=== PATIENT | female | born 1970 | race Caucasian/White ===

== ENCOUNTER 2017-04-27 10:13 | Emergency (ER) | payer OTHER ==
[2017-04-27] MEDS ORDERED: LORAZEPAM 2 MG/ML SOL IV ONE ×2 (10:22→10:53)
[2017-04-27] MEDS ORDERED: PROCHLORPERAZINE EDISYLATE 5 MG/ML SOL IV ONE (10:22)
[2017-04-27 10:27] VITALS: TEMP 97.9
[2017-04-27] MEDS ORDERED: LORAZEPAM 2 MG/ML SOL ONE ×2 (10:36→10:54)
[2017-04-27] MEDS ORDERED: PROCHLORPERAZINE EDISYLATE 5 MG/ML SOL ONE (10:36)
[2017-04-27 10:38] LABS: BASOPHILS % (AUTO) 1 % (0-3); EOSINOPHILS % (AUTO) 1 % (0-9); HEMATOCRIT 38 % (35-47); MEAN CORPUSCULAR HGB CONC 33.5 gm/dl (32.0-36.0); MONOCYTES % (AUTO) 5.3 % (0-12); NEUTROPHILS % (AUTO) 69.2 % (37-80)
[2017-04-27 10:41] LABS: MEAN CORPUSCULAR VOLUME 78 fL (81-99)
[2017-04-27 10:51] LABS: ALBUMIN 3.3 gm/dl (3.4-5.0); CALCIUM 8.5 mg/dl (8.5-10.1); POTASSIUM 4.2 mMol/L (3.5-5.1)
[2017-04-27] MEDS ORDERED: HYDROMORPHONE HCL 2 MG/ML SOL ONE (10:53)
[2017-04-27] MEDS ORDERED: HYDROMORPHONE HCL 2 MG/ML SOL IV ONE (10:53)
[2017-04-27 13:08] VITALS: RESP 20
[2017-04-27 13:09] VITALS: BP 138/99; PULSE 85; O2SAT 99
== END 2017-04-27 13:00 | disposition home or self-care (01) | DRG 103 ==
LOC: ED 10:13
DX: G43.009 Migraine without aura, not intractable, without status migrainosus (principal)
CPT/HCPCS: 36415; 70551; 80053; 85025; 96374; 96375; 99284; 99285; J0780; J1170; J2060

== ENCOUNTER 2017-08-11 01:33 | Observation (INO) | payer OTHER ==
[2017-08-11] MEDS ORDERED: ONDANSETRON HCL 4 MG/2 ML SOL IV ONE (01:53)
[2017-08-11] MEDS ORDERED: KETOROLAC TROMETHAMINE 30 MG/ML SOL IV ONE ×2 (01:53→09:38)
[2017-08-11] MEDS ORDERED: PROMETHAZINE HYDROCHLORIDE 25 MG/ML SOL IV ONE (01:53)
[2017-08-11] MEDS ORDERED: KETOROLAC TROMETHAMINE 30 MG/ML SOL ONE (01:58)
[2017-08-11] MEDS ORDERED: PROMETHAZINE HYDROCHLORIDE 25 MG/ML SOL ONE (01:58)
[2017-08-11] MEDS ORDERED: ONDANSETRON HCL 4 MG/2 ML SOL ONE (01:58)
[2017-08-11] MEDS ORDERED: SODIUM CHLORIDE 0.9% 1000ML 1,000 ML IV SCH ×2 (02:00→03:00)
[2017-08-11] MEDS: SODIUM CHLORIDE 0.9% FLUSH 10 ML SOL IV PRN ×2 (02:11→09:51)
[2017-08-11 02:24] LABS: HEMATOCRIT 32 % (35-47)
[2017-08-11 02:33] LABS: MEAN CORPUSCULAR VOLUME 79 fL (81-99)
[2017-08-11 02:42] LABS: ALBUMIN 3.1 gm/dl (3.4-5.0); CALCIUM 7.8 mg/dl (8.5-10.1)
[2017-08-11 02:45] LABS: ANISOCYTOSIS SLIGHT AMT; BASOPHILS % (MANUAL) 0 % (0-3); EOSINOPHILS % (MANUAL) 2 % (0-9); LYMPHOCYTES % (MANUAL) 49 % (10-50)
[2017-08-11] MEDS ORDERED: HYDROMORPHONE 1 MG/ML SYRINGE IV PRN (02:54)
[2017-08-11 03:36] VITALS: O2SAT 99
[2017-08-11] MEDS ORDERED: HYDROMORPHONE HCL 2 MG/ML SOL ONE (06:06)
[2017-08-11 07:15] LABS: CALCIUM 7.6 mg/dl (8.5-10.1); POTASSIUM 3.8 mMol/L (3.5-5.1)
[2017-08-11 07:19] VITALS: BP 122/77; PULSE 60; RESP 20; TEMP 96.6
[2017-08-11 07:25] LABS: BASOPHILS % (AUTO) 1 % (0-3); EOSINOPHILS % (AUTO) 1 % (0-9); HEMATOCRIT 32 % (35-47); MEAN CORPUSCULAR HGB CONC 34.4 gm/dl (32.0-36.0); MONOCYTES % (AUTO) 8.2 % (0-12); NEUTROPHILS % (AUTO) 40.6 % (37-80)
[2017-08-11 07:27] LABS: MEAN CORPUSCULAR VOLUME 79 fL (81-99)
[2017-08-11] MEDS ORDERED: HYDROMORPHONE HCL 2 MG/ML SOL IV ONE (09:38)
== END 2017-08-11 12:10 | disposition home or self-care (01) | DRG 948 ==
LOC: ED 01:33 → INTOOBSV 02:54 → ACUTE CARE 02:54
PROVIDERS: ADMIT Family Medicine; ATTEND Family Medicine
DX: R41.0 Disorientation, unspecified (principal)
CPT/HCPCS: 36415; 70450; 80048; 80053; 83735; 85007; 85025; 85027; 96365; 96374; 96375; 99285; J1170; J1885; J2405; J2550

== ENCOUNTER 2018-02-08 21:45 | Emergency (ER) | payer OTHER ==
[2018-02-08] MEDS ORDERED: PROMETHAZINE HYDROCHLORIDE 25 MG/ML SOL ONE (22:02)
[2018-02-08] MEDS ORDERED: HYDROMORPHONE 1 MG/ML SYRINGE IV PRN (22:04)
[2018-02-08] MEDS ORDERED: HYDROMORPHONE HCL 2 MG/ML SOL ONE ×2 (22:04→23:22)
[2018-02-08] MEDS ORDERED: SODIUM CHLORIDE 0.9% IV ONE (22:04)
[2018-02-08] MEDS ORDERED: DIHYDROERGOTAMINE IV ONE (22:04)
[2018-02-08] MEDS ORDERED: PROMETHAZINE HYDROCHLORIDE 25 MG/ML SOL IV ONE (22:04)
[2018-02-08] MEDS ORDERED: SODIUM CHLORIDE 0.9% 1000ML 1,000 ML IV SCH (22:15)
[2018-02-08] MEDS ORDERED: SODIUM CHLORIDE 0.9% FLUSH 10 ML SOL IV PRN (22:30)
[2018-02-08] MEDS ORDERED: PROMETHAZINE HYDROCHLORIDE 25 MG/ML SOL IM ONE (22:32)
[2018-02-08 23:16] VITALS: TEMP 96.6
[2018-02-08] MEDS ORDERED: HYDROMORPHONE HCL 2 MG/ML SOL IV ONE (23:18)
[2018-02-08 23:45] VITALS: RESP 16
[2018-02-09 00:04] VITALS: BP 136/87; PULSE 76; O2SAT 96
== END 2018-02-08 23:59 | disposition home or self-care (01) | DRG 103 ==
LOC: ED 21:45
DX: G43.109 Migraine with aura, not intractable, without status migrainosus (principal)
CPT/HCPCS: 99285; J1170; J2550

== ENCOUNTER 2018-08-22 06:56 | Day surgery (SDC) | payer OTHER ==
[2018-08-22] MEDS ORDERED: BUPIVACAINE HCL 0.25% MPF 30 ML SOL INFIL ONE (08:25)
[2018-08-22] MEDS: DEXAMETHASONE SOD PHOS PF 10 MG/ML SOL IJ ONE ×2 (09:06→09:10)
[2018-08-22 09:26] VITALS: BP 121/79; PULSE 76; RESP 20; TEMP 97.4; O2SAT 97
== END 2018-08-22 10:50 | disposition home or self-care (01) | DRG 552 ==
LOC: SURG 06:56
PROVIDERS: ATTEND Nurse Anesthetist, Certified Registered
DX: M51.17 Intervertebral disc disorders with radiculopathy, lumbosacral region (principal); M51.37 Other intervertebral disc degeneration, lumbosacral region
CPT/HCPCS: J1100

== ENCOUNTER 2019-02-01 18:13 | Emergency (ER) | payer OTHER ==
[2019-02-01] MEDS ORDERED: ASPIRIN 81 MG CHEWABLE CTB PO ONE (18:29)
[2019-02-01] MEDS: SODIUM CHLORIDE 0.9% FLUSH 10 ML SOL IV PRN ×2 (18:30→18:48)
[2019-02-01] MEDS ORDERED: ASPIRIN 81 MG CHEWABLE CTB ONE (18:32)
[2019-02-01] MEDS ORDERED: METOPROLOL TARTRATE 25 MG TAB PO ONE (18:39)
[2019-02-01] MEDS ORDERED: METOPROLOL TARTRATE 5 MG/5 ML SOL IV ONE ×2 (18:41→18:53)
[2019-02-01 19:04] LABS: THYROID STIMULATING HORMONE 3.622 uIU/ml (0.358-3.740); TROP I < 0.017 ng/ml (0.000-0.056)
[2019-02-01 19:14] VITALS: TEMP 97.6
[2019-02-01 19:22] LABS: ALBUMIN 3.3 gm/dl (3.4-5.0); ALKALINE PHOSPHATASE 115 IU/L (46-116); ALT 18 IU/L (14-63); AST 12 IU/L (15-37); BILIRUBIN,TOTAL 0.3 mg/dl (0.2-1.0); BLOOD UREA NITROGEN 15 mg/dl (7-18); CALCIUM 8.7 mg/dl (8.5-10.1); CARBON DIOXIDE 25.2 mEq/L (21-32); CHLORIDE 104 mMol/L (98-107); CREATININE 1.09 mg/dl (0.60-1.00); GLUCOSE 107 mg/dl (74-106); POTASSIUM 3.9 mMol/L (3.5-5.1); SODIUM 141 mMol/L (136-145); TOTAL PROTEIN 7.6 gm/dl (6.4-8.2)
[2019-02-01] MEDS ORDERED: METOPROLOL TARTRATE 50 MG TAB PO ONE (19:30)
[2019-02-01] MEDS ORDERED: METOPROLOL TARTRATE 25 MG TAB ONE ×2 (19:42→19:44)
[2019-02-01 21:00] VITALS: RESP 18; O2SAT 97
[2019-02-01 21:40] VITALS: BP 179/96; PULSE 82
== END 2019-02-01 21:18 | disposition short-term general hospital (02) | DRG 305 ==
LOC: ED 18:13
DX: I16.1 Hypertensive emergency (principal); E53.0 Riboflavin deficiency; I10 Essential (primary) hypertension; R51 Headache; R07.89 Other chest pain; R42 Dizziness and giddiness; R53.83 Other fatigue
CPT/HCPCS: 80053; 84443; 84484; 96374; 99283; 99285; A9270-GY; J3490